=== PATIENT | female | born 1940 | race Caucasian/White ===

== ENCOUNTER 2017-10-24 20:33 | Emergency (ER) | payer OTHER, MEDICARE ==
--- NOTE | 2017-10-24 20:41 | PDOC ---
History of Present Illness - General History Source: Patient, Family Exam Limitations: No Limitations - History of Present Illness Initial Comments: 10/25/17 00:55 The patient is a 76 year old female, accompanied by her and step daughter, with significant past medical history of COPD and appendectomy (unsure ) presents to the hospital complaining of lower abdominal pain for the past 2 week. The patient reports generalized pain with mild relief after taking tylenol and hyoscyamine sulfate. Associated symptoms includes cramps, loss of appetite, rectal urgency after eating back pain when lying flat, lack of movement (lying in bed) secondary to pain. The patient reports chronically feels forceful heart beats upon heavy lifting of objects. The patient states right ear closure upon quick movement of the head. Patient denies fever, chills, diaphoresis, dysphagia, nausea, vomiting, diarrhea , hematochezia, dysuria, hematuria, flank pain. The patient denies, SOB chest pain, dyspnea. Social History: The patient reports she quit smoking and using alcohol several years ago. No use of recreational drugs. Allergies: Penicillin <Rashmi Novoa - Last Filed: 10/25/17 00:55> <Natasha Pabon - Last Filed: 10/25/17 02:10> - General Chief Complaint: Pain, Acute Stated Complaint: ABDOMINAL DISCOMFORT Time Seen by Provider: 10/24/17 20:37 Past History <Rashmi Novoa - Last Filed: 10/25/17 00:55> - Past Medical History COPD: Yes - Surgical History Appendectomy: Yes (unsure) - Suicide/Smoking/Psychosocial Hx Smoking History: Former smoker Have you smoked in the past 12 months: No Number of Cigarettes Smoked Daily: 20 If you are a former smoker, when did you quit?: 2011 'Breaking Loose' booklet given: 07/29/13 Hx Alcohol Use: No Drug/Substance Use Hx: No Substance Use Type: None Hx Substance Use Treatment: No <Natasha Pabon - Last Filed: 10/25/17 02:10> - Past Medical History Allergies/Adverse Reactions: Allergies Allergy/AdvReac Type Severity Reaction Status Date / Time Penicillins Allergy Unknown Verified 10/24/17 20:39 Home Medications: Ambulatory Orders Alprazolam [Xanax] 0.5 mg PO 2 QID #120 tablet 07/29/13 Hyoscyamine Odt [Levsin Odt -] 0.125 mg PO QID PRN #20 tab.rapdis 10/24/17 Hyoscyamine Sulfate [Levsin -] 0.125 mg PO Q4H 10/24/17 Review of Systems - Review of Systems Able to Perform ROS?: Yes Comments:: 10/25/17 00:55 GENERAL/CONSTITUTIONAL: (+) loss of appetite. No fever or chills. No weakness. HEAD, EYES, EARS, NOSE AND THROAT: No change in vision. No ear pain or discharge. No sore throat. CARDIOVASCULAR: No chest pain or shortness of breath. RESPIRATORY: No cough, wheezing, or hemoptysis. GASTROINTESTINAL: (+) constipation. No nausea, vomiting, diarrhea GENITOURINARY: No dysuria, frequency, or change in urination. MUSCULOSKELETAL: (+) back pain when lying flat. No joint or muscle swelling or pain. No neck SKIN: No rash NEUROLOGIC: No headache, vertigo, loss of consciousness, or change in strength/ sensation. ENDOCRINE: No increased thirst. No abnormal weight change. HEMATOLOGIC/LYMPHATIC: No anemia, easy bleeding, or history of blood clots. ALLERGIC/IMMUNOLOGIC: No hives or skin allergy. <Rashmi Novoa - Last Filed: 10/25/17 00:55> *Physical Exam - Vital Signs Last Vital Signs Temp Pulse Resp BP Pulse Ox 97 F L 98 H 18 141/90 95 10/24/17 20:39 10/24/17 20:39 10/24/17 20:39 10/24/17 20:39 10/24/17 20:39 - Physical Exam Comments: 10/25/17 00:56 GENERAL: (+) thin elderly women. Awake, alert, and fully oriented, in no acute distress HEAD: No signs of trauma EYES: PERRLA, EOMI, sclera anicteric, conjunctiva clear ENT: (+) dry mucosa. Auricles normal inspection, hearing grossly normal, nares patent, oropharynx clear without exudates. NECK: Normal ROM, supple, no lymphadenopathy, JVD, or masses LUNGS: Breath sounds equal, clear to auscultation bilaterally. No wheezes, and no crackles HEART: Regular rate and rhythm, normal S1 and S2, no murmurs, rubs or gallops ABDOMEN:(+) hyperactive bowel. Flat, Soft, nontender. No guarding, no rebound. No masses or organomegaly. EXTREMITIES: Normal range of motion, no edema. No clubbing or cyanosis. Normal cap. Refill. No cords, erythema, or tenderness NEUROLOGICAL: Cranial nerves II through XII grossly intact. Normal speech, normal gait SKIN: Warm, Dry, normal turgor, no rashes or lesions noted. <Rashmi Novoa - Last Filed: 10/25/17 00:55> ED Treatment Course - LABORATORY CBC & Chemistry Diagram: 10/24/17 21:21 10/24/17 21:21 <Rashmi Novoa - Last Filed: 10/25/17 00:55> - LABORATORY CBC & Chemistry Diagram: 10/24/17 21:21 10/24/17 21:21 <Natasha Pabon - Last Filed: 10/25/17 02:10> Progress Note - Progress Note Progress Note: Documentation has been prepared under my direction and personally reviewed by me in its entirety. I attest that this documented accurately reflects all work, treatment, procedures and medical decision making performed by me. <Natasha Pabon - Last Filed: 10/25/17 02:10> Medical Decision Making - Medical Decision Making As noted above, this 76-year-old woman with a history of COPD/anxiety presents with a few week history of crampy abdominal pain and rectal urgency. She has no significant other associated symptoms except for voluntary decreased oral intake secondary to the patient not wanting to experience postprandial rectal urgency. No previous history of irritable bowel syndrome or other gastrointestinal issues. Last colonoscopy (Dr. Angela) was 7 years ago. She had some relief after hyoscyamine was empirically prescribed by her PMD one week. When she called PMD for refill of the medication, she was advised to come to ER for further evaluation. Exam as noted; patient had no tenderness or masses on exam. CBC/chemistry profile/urinalysis sent. Results of laboratory evaluation: CBC essentially normal except for mildly elevated H/H (18/48). WBC normal at 4200. Chemistry profile reveals mild hyponatremia and hypokalemia (3.3) but no other significant abnormalities. Urine culture and sensitivity sent because of few RBCs/WBCs/bacteria in UA. Results discussed with patient and her family. Because she has no abdominal tenderness or significant abnormalities in her lab work, further imaging (i.e. abdominal/pelvic CT) will be deferred at this time. She has been followed by Dr. Angela for gastroenterology issues. She is strongly advised to see Dr. Angela within the next 5-7 days. In the meantime, hyoscyamine renewal will be sent. It was emphasized to the patient that her GI workup is not completed and all the possible etiologies of her abdominal pain have not been ruled out. If she experiences worsening pain/vomiting/fever she should return to the emergency room for further evaluation. <Natasha Pabon - Last Filed: 10/25/17 02:10> *DC/Admit/Observation/Transfer - Attestations Scribe Attestion: 10/24/17 22:02 Documentation prepared by Rashmi Novoa, acting as medical liaison for Natasha Pabon MD. <Rashmi Novoa - Last Filed: 10/25/17 00:55> <Natasha Pabon - Last Filed: 10/25/17 02:10> Diagnosis at time of Disposition: Abdominal discomfort, generalized - Discharge Dispostion Disposition: HOME Condition at time of disposition: Stable - Prescriptions Prescriptions: Hyoscyamine Odt [Levsin Odt -] 0.125 mg PO QID PRN #20 tab.rapdis PRN Reason: Pain - Referrals Referrals: Feroz Groves MD [Primary Care Provider] - Mauro Angela MD [Staff Physician] - - Patient Instructions Printed Discharge Instructions: DI for Abdominal Pain-Adult, High-Potassium Diet Additional Instructions: Drink plenty of fluids Consume high potassium fruits and vegetables in your diet Follow-up with Dr. Groves within the next week Call Dr. Angela's office tomorrow to arrange follow-up within the next 5-7 days Return to ER if you have worsening abdominal pain/vomiting/fever - Post Discharge Activity
[2017-10-24 20:44] VITALS: BP 141/90; PULSE 98; TEMP 97; BMI 19.2
[2017-10-24 21:44] LABS: URINE APPEARANCE Clear; URINE BILIRUBIN 1+ (NEGATIVE); URINE GLUCOSE (UA) Negative (NEGATIVE); URINE KETONE 1+ (NEGATIVE); URINE NITRITE Negative (NEGATIVE); URINE PROTEIN Trace (NEGATIVE); URINE UROBILINOGEN 0.2 (0.2-1.0)
[2017-10-24 21:45] LABS: URINE BLOOD 2+ (NEGATIVE); URINE COLOR YELLOW; URINE LEUK ESTERASE TRACE (NEGATIVE)
[2017-10-24 22:04] LABS: BASO % 1.5 % (0-2.0); EOS % 0.4 % (0-4.5); HEMATOCRIT 48.1 % (32.4-45.2); HEMOGLOBIN 15.9 GM/dl (10.7-15.3); LYMPH % 22.1 % (8-40); MCH 31.5 pg (25.7-33.7); MEAN CELL VOLUME 95.5 fl (80-96); MEAN PLT VOLUME 8.7 fl (7.5-11.1); MONO % 7.6 % (3.8-10.2); NEUT % 68.4 % (42.8-82.8); PLATELET COUNT 158 K/MM3 (134-434); RBC 5.04 M/mm3 (3.60-5.2); WHITE BLOOD COUNT 4.8 K/mm3 (4.0-10.8)
[2017-10-24 22:12] LABS: ALBUMIN 4.7 g/dl (3.5-5.0); ALK PHOS 66 U/L (32-92); ANION GAP 7 (8-16); BILIRUBIN,TOTAL 0.7 mg/dl (0.2-1.0); BLOOD UREA NITROGEN 8 mg/dl (7-18); CALCIUM 9.2 mg/dl (8.4-10.2); CHLORIDE 101 mmol/L (98-107); CO2 26 mmol/L (22-28); CREATININE 0.6 mg/dl (0.6-1.3); GLUCOSE,RANDOM 98 mg/dl (74-106); POTASSIUM 3.3 mmol/L (3.5-5.1); SGOT/AST 29 U/L (10-42); SGPT/ALT 15 U/L (10-40); SODIUM 134 mmol/L (136-145); TOT PROT 7.5 g/dl (6.4-8.3)
[2017-10-24 22:13] LABS: EPI CELLS FEW /HPF; URINE BACTERIA FEW /hpf (NEGATIVE); URINE MUCUS FEW; URINE RBC 0-3 /hpf (0-3)
== END 2017-10-24 22:58 | disposition home or self-care (01) ==
LOC: FER 20:33
DX: R10.84 Generalized abdominal pain (principal); F41.9 Anxiety disorder, unspecified
CPT/HCPCS: 36415; 80053; 81003; 81015; 85025; 87086; 87186; 99282-25

== ENCOUNTER 2017-11-01 14:35 | Emergency (ER) | payer OTHER, MEDICARE ==
[2017-11-01 14:43] VITALS: BMI 19.2
[2017-11-01] MEDS ORDERED: SODIUM CHLORIDE 1,000 ML IV SCH (15:15)
--- NOTE | 2017-11-01 15:24 | PDOC ---
History of Present Illness - General History Source: Patient, Family Exam Limitations: No Limitations - History of Present Illness Initial Comments: 11/01/17 16:10 CC: abdominal pain The patient is a 76 year old female, accompanied by her son, with a significant past medical history of anxiety, COPD and appendectomy (unsure) of who presents to the emergency department complaining of lower abdominal pain beginning approximately 1 week ago. The patient describes moderate abdominal pain this morning with mild relief after taking tylenol. The patient reports associated symptoms of diarrhea and constipation, although she reports of chronic constipation. Of note,The patient was discharged from the hospital on 10/24 for similar episodes of abdominal pain and was told to return to emergency department for further evaluation if abdominal pain persists. The patient denies chest pain, shortness of breath, headache, and dizziness. Denies fevers, chills, nausea, and vomiting, Denies dysuria, frequency, urgency, hematuria and abnormal vaginal discharge. Allergies: Penicillin Medications: Alprazolam and Nortriptyline Social History: The patient reports she quit smoking (2011) and using alcohol several years ago. No reported use of recreational drugs. Surgical History: Abdominal surgery for Endometriosis many years ago. PCP: Dr. Groves <Senthil León - Last Filed: 11/01/17 16:15> <Gonzales Miner - Last Filed: 11/01/17 18:35> - General Chief Complaint: Pain Stated Complaint: ABD PAIN Time Seen by Provider: 11/01/17 14:56 Past History <Senthil León - Last Filed: 11/01/17 16:15> - Past Medical History COPD: Yes Psychiatric Problems: Yes (ANXIETY) - Surgical History Appendectomy: Yes (unsure) - Suicide/Smoking/Psychosocial Hx Smoking History: Former smoker Have you smoked in the past 12 months: No Number of Cigarettes Smoked Daily: 20 If you are a former smoker, when did you quit?: 2011 Information on smoking cessation initiated: No 'Breaking Loose' booklet given: 07/29/13 Hx Alcohol Use: No Drug/Substance Use Hx: No Substance Use Type: None Hx Substance Use Treatment: No <Gonzales Miner - Last Filed: 11/01/17 18:35> - Past Medical History Allergies/Adverse Reactions: Allergies Allergy/AdvReac Type Severity Reaction Status Date / Time Penicillins Allergy Unknown Verified 11/01/17 14:36 Home Medications: Ambulatory Orders Alprazolam [Xanax] 0.5 mg PO 2 QID PRN #120 tablet 07/29/13 Phenobarb/Hyoscy/Atropine/Scop [ Elixir -] 5 ml PO BID PRN #120 ml 11/01 Review of Systems - Review of Systems Able to Perform ROS?: Yes Comments:: 11/01/17 16:10 CONSTITUTIONAL: Absent: Fever, Chills, Diaphoresis, Generalized Weakness, Malaise, Loss of Appetite HEENT: Absent: Rhinorrhea, Nasal Congestion, Throat Pain, Throat Swelling, Difficulty Swallowing, Mouth Swelling, Ear Pain, Eye Pain, Visual Changes CARDIOVASCULAR: Absent: Chest Pain, Syncope, Palpitations, Irregular Heart Rate, Lightheadedness , Peripheral Edema RESPIRATORY: Absent: Cough, Shortness of Breath, SOB with Exertion, Orthopnea, Wheezing, Stridor, Hemoptysis GASTROINTESTINAL: (+) Lower abdominal pain. (+)Diarrhea. (+) Constipation. Absent: Abdominal Distension, Nausea, Vomiting, Melena, Hematochezia GENITOURINARY: Absent: Dysuria, Frequency, Urgency, Hesitancy, Flank Pain, Genital Pain MUSCULOSKELETAL: Absent: Myalgia, Arthralgia, Joint Swelling, Back pain, Neck Pain SKIN: Absent: Rash, Itching, Pallor HEMEATOLOGIC/IMMUNOLOGIC: Absent: Easy Bleeding, Easy Bruising, Lymphadenopathy, Frequent infections ENDOCRINE: Absent: Unexplained Weight Gain, Unexplained Weight Loss, Heat Intolerance, Cold Intolerance NEUROLOGIC: Absent: Headache, Focal Weakness, Paresthesias, Vertigo, Lightheadedness, Unsteady Gait, Seizure, Mental Status Changes, Incontinence PSYCHIATRIC: (+)Anxiety Absent: Depression <Senthil León - Last Filed: 11/01/17 16:15> *Physical Exam - Vital Signs Last Vital Signs Temp Pulse Resp BP Pulse Ox 97.6 F 93 H 20 128/76 92 L 11/01/17 14:35 11/01/17 14:35 11/01/17 14:35 11/01/17 14:35 11/01/17 14:35 - Physical Exam Comments: GENERAL: The patient is awake, alert, and fully oriented, in no acute distress. HEAD: Normal with no signs of trauma. EYES: Pupils equal, round and reactive to light, extraocular movements intact, sclera anicteric, conjunctiva clear. ENT: Ears normal, nares patent, oropharynx clear without exudates. Moist mucous membranes. NECK: Normal range of motion, supple without lymphadenopathy, JVD, or masses. LUNGS: Breath sounds equal, clear to auscultation bilaterally. No wheezes, and no crackles. HEART: Regular rate and rhythm, normal S1 and S2 without murmur, rub or gallop. ABDOMEN: (+)Mild epigastric tenderness with deep palpation, otherwise without tenderness. Flat, without distension. Normoactive bowel sounds. No guarding, no rebound. No masses. EXTREMITIES: Normal range of motion, no edema. No clubbing or cyanosis. No cords , erythema, or tenderness. NEUROLOGICAL: Cranial nerves II through XII grossly intact. Normal speech, normal gait. PSYCH: Normal mood, normal affect. SKIN: Warm, Dry, normal turgor, no rashes or lesions noted. <Senthil León - Last Filed: 11/01/17 16:15> - Vital Signs Last Vital Signs Temp Pulse Resp BP Pulse Ox 97.6 F 93 H 20 128/76 92 L 11/01/17 14:35 11/01/17 14:35 11/01/17 14:35 11/01/17 14:35 11/01/17 14:35 <Gonzales Miner - Last Filed: 11/01/17 18:35> ED Treatment Course - LABORATORY CBC & Chemistry Diagram: 11/01/17 15:31 11/01/17 15:31 - RADIOLOGY Radiology Studies Ordered: Category Date Time Status ABDOMEN & PELVIS CT WITH CONTR [CT] Stat CT Scan 11/01/17 15:12 Ordered <Gonzales Miner - Last Filed: 11/01/17 18:35> Medical Decision Making - Medical Decision Making 11/01/17 18:28 Patient is a 76-year-old woman with a history of intermittent, chronic abdominal pain. Over the past week she has had increased abdominal pain somewhat diffusely. She hears lots of bowel sounds and gets crampy pains. There is no vomiting, but positive nausea. She has been passing normal bowel movements, but today at the and she noted a little bit of loose stool consistent with diarrhea. There is no fever. There is no dysuria. There is no vaginal discharge. She has a poor appetite for many years. 30 years ago she weighed 115 pounds and more recently she has been weighing about 105 pounds. Today she got on the scale in the emergency department and she is 90 pounds. She may have lost weight over the past year or so. Her last colonoscopy was [address] Angela. On examination, the patient appears very thin. The head and neck examination is normal. The heart and lungs are normal. There are rare premature beats. The abdomen is soft with mild epigastric tenderness on deep palpation. There is no guarding or rebound. There is no distention. CT scan of the abdomen and pelvis showed no abdominal pathology. There is arthritic change of the spine. Laboratory workup is unremarkable other than mild hypokalemia. Impression: Chronic, intermittent abdominal pain. No specific pathology identified with ED workup. Patient advised to go back to Dr. Angela for repeat colonoscopy within the next 10 days. She and her son both state that she will call him tomorrow and she understands the importance of colonoscopy for follow- up in the setting of weight loss. Laboratory Results - last 24 hr 11/01/17 11/01/17 11/01/17 15:31 15:31 16:05 WBC 5.4 RBC 4.43 Hgb 14.3 D Hct 42.5 MCV 96.0 MCH 32.3 MCHC 33.7 RDW 13.0 Plt Count 164 MPV 8.5 Neutrophils % 74.2 Lymphocytes % 15.5 Monocytes % 8.9 Eosinophils % 0.8 Basophils % 0.6 Sodium 136 Potassium 3.4 L Chloride 102 Carbon Dioxide 27 Anion Gap 7 L BUN 10 D Creatinine < 0.8 D Creat Clearance w eGFR > 60 Random Glucose 105 Calcium 8.4 Total Bilirubin 0.7 AST 25 ALT 14 Alkaline Phosphatase 54 Total Protein 6.4 Albumin 3.9 Lipase 74 Urine Color Yellow Urine Appearance Clear Urine pH 7.0 Ur Specific [place] 1.015 Urine Protein Negative Urine Glucose (UA) Negative Urine Ketones Negative Urine Blood Negative Urine Nitrite Negative Urine Bilirubin Negative Urine Urobilinogen 0.2 Ur Leukocyte Esterase Negative <Gonzales Miner - Last Filed: 11/01/17 18:35> *DC/Admit/Observation/Transfer - Attestations Scribe Attestion: Documentation prepared by Senthil León, acting as curator medical museum for Gonzales Miner MD. <Senthil León - Last Filed: 11/01/17 16:15> - Discharge Dispostion Admit: No <Gonzales Miner - Last Filed: 11/01/17 18:35> Diagnosis at time of Disposition: Abdominal pain Qualifiers: Abdominal location: generalized Qualified Code(s): R10.84 - Generalized abdominal pain - Discharge Dispostion Disposition: HOME Condition at time of disposition: Stable - Prescriptions Prescriptions: Phenobarb/Hyoscy/Atropine/Scop [ Elixir -] 5 ml PO BID PRN #120 ml PRN Reason: abdominal spasms or pain - Referrals Referrals: Feroz Groves MD [Primary Care Provider] - Mauro Angela MD [Staff Physician] - - Patient Instructions Printed Discharge Instructions: DI for Abdominal Pain-Adult Additional Instructions: You were evaluated today for abdominal pain. The tests performed in the emergency department showed no serious cause of pain. The CT scan was normal and the blood work was normal other than low potassium. The sure to eat potassium rich foods. Potassium rich foods include fruit and vegetables such as orange juice and bananas. You are advised to follow-up with Dr. Angela for colonoscopy within the next 10 days. Please call him tomorrow to arrange for follow-up. Your weight today in the emergency department was 90 pounds, and the weight loss should be further evaluated. - Post Discharge Activity
[2017-11-01 16:41] LABS: URINE APPEARANCE Clear; URINE BILIRUBIN Negative (NEGATIVE); URINE BLOOD Negative (NEGATIVE); URINE GLUCOSE (UA) Negative (NEGATIVE); URINE KETONE Negative (NEGATIVE); URINE LEUK ESTERASE Negative (NEGATIVE); URINE NITRITE Negative (NEGATIVE); URINE PROTEIN Negative (NEGATIVE); URINE UROBILINOGEN 0.2 (0.2-1.0)
[2017-11-01 16:43] LABS: URINE COLOR YELLOW
[2017-11-01 16:45] LABS: ALBUMIN 3.9 g/dl (3.5-5.0); ALK PHOS 54 U/L (32-92); ANION GAP 7 (8-16); BILIRUBIN,TOTAL 0.7 mg/dl (0.2-1.0); BLOOD UREA NITROGEN 10 mg/dl (7-18); CALCIUM 8.4 mg/dl (8.4-10.2); CHLORIDE 102 mmol/L (98-107); CO2 27 mmol/L (22-28); GLUCOSE,RANDOM 105 mg/dl (74-106); POTASSIUM 3.4 mmol/L (3.5-5.1); SGOT/AST 25 U/L (10-42); SGPT/ALT 14 U/L (10-40); SODIUM 136 mmol/L (136-145); TOT PROT 6.4 g/dl (6.4-8.3)
[2017-11-01 16:52] LABS: BASO % 0.6 % (0-2.0); EOS % 0.8 % (0-4.5); HEMATOCRIT 42.5 % (32.4-45.2); HEMOGLOBIN 14.3 GM/dl (10.7-15.3); LYMPH % 15.5 % (8-40); MCH 32.3 pg (25.7-33.7); MCHC 33.7 g/dl (32.0-36.0); MEAN PLT VOLUME 8.5 fl (7.5-11.1); MONO % 8.9 % (3.8-10.2); NEUT % 74.2 % (42.8-82.8); PLATELET COUNT 164 K/MM3 (134-434); RBC 4.43 M/mm3 (3.60-5.2); WHITE BLOOD COUNT 5.4 K/mm3 (4.0-10.8)
[2017-11-01 16:57] LABS: CREATININE < 0.8 mg/dl (0.6-1.3)
[2017-11-01] MEDS ORDERED: POTASSIUM CHLORIDE TABS 20 MEQ TABLET.ER (FP) PO ONE ×2 (17:43→17:48)
[2017-11-01 17:58] LABS: LIPASE 74 U/L (73-393)
[2017-11-01] MEDS ORDERED: ACETAMINOPHEN 325 MG TABLET (FP) PO ONE (18:36)
[2017-11-01] MEDS ORDERED: ACETAMINOPHEN 500 MG TABLET (FP) ONE (18:42)
[2017-11-01 18:49] VITALS: BP 129/71; PULSE 86; TEMP 97.8
== END 2017-11-01 18:51 | disposition home or self-care (01) ==
LOC: FER 14:35
PROC: 3E0337Z Introduction of Electrolytic and Water Balance Substance into Peripheral Vein, Percutaneous Approach (ICD-10-PCS; principal; 2017-11-01)
DX: R10.84 Generalized abdominal pain (principal); J44.9 Chronic obstructive pulmonary disease, unspecified; F41.9 Anxiety disorder, unspecified; Z87.891 Personal history of nicotine dependence
CPT/HCPCS: 36415; 74177-TC; 80053; 81003; 83690; 85025; 99285-25; J7030

== ENCOUNTER 2019-05-02 09:20 | Emergency (ER) | payer OTHER, MEDICARE ==
--- NOTE | 2019-05-02 09:28 | PDOC ---
History of Present Illness - General Chief Complaint: Rectal Bleed Stated Complaint: RECTAL BLEEDING Time Seen by Provider: 05/02/19 09:28 - History of Present Illness Initial Comments: 05/02/19 09:29 78 year old woman with a history of anxiety, COPD, appendectomy who presents with rectal bleeding noticed on tissue paper, abdominal cramping after several boughts of diarrhea throughout the night. The patient has had intermittent constipation, abdominal cramping, diarrhea and mild rectal bleeding for 6 month and was seen by Dr. Looney on 04/29 who prescribed fleet enema for her. The patient reports that her last colonoscopy was 8 years ago and her last CT was on 11/13/18 which did not show acute pathology. The patient denies any nausea, vomiting or fevers. No foul smell of stool. Allergies: Penicillin Medications: Alprazolam, Nortriptyline Social History: quit in 2011 Surgical History: appendectomy, endometriosis PCP: Dr. Germain KINSEY GENERAL/CONSTITUTIONAL: No fever or chills. No weakness. CARDIOVASCULAR: No chest pain or shortness of breath RESPIRATORY: No cough, wheezing, or hemoptysis. GASTROINTESTINAL: No nausea, vomiting, + diarrhea or constipation. GENITOURINARY: No dysuria, frequency, or change in urination. MUSCULOSKELETAL: No joint or muscle swelling or pain. No neck or back pain. SKIN: No rash NEUROLOGIC: No headache, vertigo, loss of consciousness, or change in strength/ sensation. PE GENERAL: Awake, alert, and fully oriented, in no acute distress HEAD: No signs of trauma, normocephalic, atraumatic EYES: PERRLA, EOMI, sclera anicteric, conjunctiva clear ENT: oropharynx clear without exudates. Moist mucosa NECK: Normal ROM, supple, LUNGS: No distress, speaks full sentences, clear to auscultation bilaterally HEART: Regular rate and rhythm, normal S1 and S2, no murmurs, rubs or gallops, peripheral pulses normal and equal bilaterally. ABDOMEN: Soft, + RLQ tenderness to palpation No guarding, no rebound. No masses EXTREMITIES : Normal inspection, Normal range of motion, no edema. No clubbing or cyanosis. NEUROLOGICAL: Cranial nerves II through XII grossly intact. Normal speech, no focal sensorimotor deficits SKIN: Warm, Dry, normal turgor, no rashes or lesions noted RECTAL: external hemorrhoids, pink, no active bleeding, good rectal tone, no gross blood MDM DDX including but not limited to: anal fissure vs hemorrhoids vs diverticulosis W/U: - cbc, cmp, CT TX: - tylenol ED Course: Lab wnl heme occult- negative Bel[place]ica Iveth, PGY2 Emergency Medicine 05/02/19 12:54 Past History - Past Medical History Allergies/Adverse Reactions: Allergies Allergy/AdvReac Type Severity Reaction Status Date / Time Penicillins Allergy Unknown Verified 05/02/19 09:26 Home Medications: Ambulatory Orders Acetaminophen [Tylenol -] 500 mg PO Q6H PRN 05/02/19 Albuterol Sulfate [Proair Hfa] 8.5 gm IH ASDIR PRN 05/02/19 Alprazolam 0.5 mg PO QID PRN 05/02/19 Cholecalciferol (Vitamin D3) [Vitamin D3] 1,000 unit PO DAILY 05/02/19 Hyoscyamine Odt [Levsin Odt -] 0.125 mg PO QID PRN 05/02/19 Polyethylene Glycol 3350 [Miralax (For Daily Use) -] 17 gm PO DAILY 05/02/19 Sodium Phosphate,[place]-Dibasic [Fleet Enema] 133 ml RC ASDIR PRN 05/02/19 COPD: Yes Psychiatric Problems: Yes (ANXIETY) - Surgical History Appendectomy: Yes (unsure) - Psycho Social/Smoking Cessation Hx Smoking History: Former smoker Have you smoked in the past 12 months: No Number of Cigarettes Smoked Daily: 20 If you are a former smoker, when did you quit?: 2011 'Breaking Loose' booklet given: 07/29/13 Hx Alcohol Use: No Drug/Substance Use Hx: No Substance Use Type: None Hx Substance Use Treatment: No ED Treatment Course - LABORATORY CBC & Chemistry Diagram: 05/02/19 10:00 05/02/19 10:00 Discharge - Discharge Information Problems reviewed: Yes Clinical Impression/Diagnosis: Abdominal discomfort, generalized, Rectal bleeding Condition: Stable Disposition: HOME - Admission No - Follow up/Referral Referrals: Feorz Groves MD [Primary Care Provider] - Tu Rosenbaum MD [Non Staff, Medical] - - Patient Discharge Instructions Patient Printed Discharge Instructions: DI for Rectal Bleeding Additional Instructions: You were seen in the ED for complaints of rectal bleeding In the ED you were evaluated with labwork Your results were largely unremarkable There does not appear to be an acute need for immediate hospitalization. You are advised to follow up with your Primary Care Physician within 1 week. You were given a referral to Urology due to a small amount of blood in your urine. Return to the ED immediately if you experience worsening abdominal pain, nausea , vomiting, significant rectal bleeding or fevers. - Post Discharge Activity
[2019-05-02 09:34] VITALS: TEMP 97.8
[2019-05-02 09:43] VITALS: BMI 14.4
[2019-05-02 10:20] LABS: BASO % 1.1 % (0-2.0); EOS % 1.9 % (0-4.5); HEMATOCRIT 40.6 % (32.4-45.2); HEMOGLOBIN 13.6 GM/dl (10.7-15.3); MCHC 33.6 g/dl (32.0-36.0); MEAN CELL VOLUME 98.3 fl (80-96); MEAN PLT VOLUME 7.9 fl (7.5-11.1); PLATELET COUNT 195 K/MM3 (134-434); RBC 4.13 M/mm3 (3.60-5.2); RDW 11.8 % (11.6-15.6)
[2019-05-02 10:37] LABS: ALBUMIN 3.7 g/dl (3.4-5.0); BILIRUBIN,TOTAL 0.3 mg/dl (0.2-1); CALCIUM 8.5 mg/dl (8.5-10); CREATININE 0.6 mg/dl (0.55-1.3); POTASSIUM 3.6 mmol/L (3.5-5.1); TOT PROT 6.5 g/dl (6.4-8.2)
[2019-05-02 11:47] LABS: AMORP PHOS 1+ /hpf (NONE SEEN); EPITHELIAL CELLS FEW /hpf
[2019-05-02] MEDS ORDERED: ALPRAZolam 0.25 MG TABLET PO ONE (12:04)
[2019-05-02] MEDS ORDERED: ALPRAZolam 0.25 MG TABLET ONE (12:06)
--- NOTE | 2019-05-02 12:17 | PDOC ---
Attending Attestation - Resident Resident Name: Belgica Lazaro - HPI HPI: 05/02/19 12:09 Pt presents to the ED complaining of a single episode of blood on the toilet paper when she wiped after a bowel movement. Also complaining of mild diffuse abdominal pain. Denies fever, nausea or vomiting or abdominal complaints. History of alternating diarrhea and constipation, seen by Dr. Looney for irritable bowel syndrome. - Physicial Exam PE: 05/02/19 12:18 Agree with resident exam. Patient is alert and oriented and in no acute distress. abdomen is soft, non distended, with mild diffuse tenderness. No guarding or rebound. - Medical Decision Making 05/02/19 12:21 Pt presents to the ED complaining of blood on the toilet paper with wiping and diffuse abdominal pain. No blood on rectal exam, but external hemorroids are present. CBC shows no anemia. Will have patient follow up with Dr. Looney for monitoring for GI bleed and return for worsening symptoms. Also complaining of abodminal pain. Diffential includes diverticulitis, less likely mass or abscess. Will check CT abdomen pelvis to rule out intraabdominal pathology
[2019-05-02 14:02] VITALS: BP 116/75; PULSE 71
== END 2019-05-02 13:30 | disposition home or self-care (01) ==
LOC: FER 09:20
DX: K62.5 Hemorrhage of anus and rectum (principal); R10.84 Generalized abdominal pain; J44.9 Chronic obstructive pulmonary disease, unspecified; F41.9 Anxiety disorder, unspecified; Z88.0 Allergy status to penicillin; Z87.891 Personal history of nicotine dependence
CPT/HCPCS: 36415; 74177-TC; 80053; 81003; 81015; 82272; 85025; 99284-25

== ENCOUNTER 2020-04-14 08:58 | Inpatient (IN) | payer OTHER, MEDICARE ==
--- NOTE | 2020-04-14 09:06 | PDOC ---
History of Present Illness - General Chief Complaint: Rectal Bleed Stated Complaint: RECTAL BLEED Time Seen by Provider: 04/14/20 09:05 - History of Present Illness Initial Comments: 04/14/20 09:23 Chief complaint: Rectal bleeding HPI: Patient brought in by her daughter. Lives alone, but with home health aide in the days. Several episodes of diarrhea over the weekend, but seemed to resolve. Today she called her daughter at 6:30 AM, before her aide arrived, saying that she had bloody stool this morning. Both the patient and the aides state that there was no blood during her prior episodes of diarrhea. She has moderate dementia and is confused, but seems to be able to converse and describe her symptoms. Review of systems: Denies fever/chills, URI symptoms, sore throat, cough, chest pain, shortness of breath, abdominal pain, nausea, vomiting, urinary tract symptoms, vaginal bleeding or discharge. Denies visual or focal neurologic symptoms, unsteadiness of gait. Appetite is adequate and she has been eating and drinking as usual. Past medical history: No history of GI disease including gastrointestinal bleed ing. However, has not had colonoscopy. Severe dementia. No known cardiovascular or pulmonary disease. No known metabolic disease or diabetes. Social history: As noted above. Lives alone with home health assistance. Daughter lives nearby and visits frequently. Dementia is becoming worse and t here is concern about the patient's ability to adequately care for herself in the near future Family history: Reviewed and noncontributory including early coronary artery disease, metabolic disease including diabetes, cancer Physical exam: Patient is confused but completely awake and responds appr opriately to questions with comprehensible verbal answers. She appears in no acute physical distress Afebrile, vital signs normal PERRLA, ENT clear Neck supple without bruit mass or nodes Chest clear, full breath sounds bilaterally, no wheezes rales or rhonchi CV S1-S2 normal without murmur rub or gallop pulses full and symmetric no JVD or edema no bruits 62 and regular Abdomen nondistended. Bowel sounds normal. Soft without mass tenderness organomegaly Rectal exam: No masses or tenderness. Minimal stool is present at the fingertip, but it is visually bloody Extremities no CCE Skin clear, no rash, adequate turgor and wet mucous membranes Neurological: Cooperation is limited but cranial nerves appear intact. No definite focal sensory or motor deficits. Moving all extremities with no a pparent loss of strength. Impression: Bloody stool, no evidence of hemorrhoids, probable lower GI bleed, rule out diverticular bleed, colon cancer, AVM. Does not appear hypovolemic, blood pressure is low normal but orthostatics not obtained. Plan: CBC, chemistries, IV access, consider admission for investigation of acute GI bleed. 04/14/20 09:50 Past History - Medical History Allergies/Adverse Reactions: Allergies Allergy/AdvReac Type Severity Reaction Status Date / Time Penicillins Allergy Unknown Verified 05/02/19 09:26 Home Medications: Ambulatory Orders Alprazolam 0.5 mg PO QID PRN 05/02/19 Mirtazapine 15 mg PO HS 04/14/20 Tiotropium [place] [Spiriva] 1 inh PO DAILY 04/14/20 COPD: Yes GI Disorders: Yes (IBS W/ CONSTIPATION, HEMMORHOIDS) Psychiatric Problems: Yes (ANXIETY) - Surgical History Appendectomy: Yes (unsure) - Psycho-Social/Smoking History Smoking History: Former smoker Have you smoked in the past 12 months: No Number of Cigarettes Smoked Daily: 20 If you are a former smoker, when did you quit?: 2011 'Breaking Loose' booklet given: 07/29/13 ED Treatment Course - LABORATORY CBC & Chemistry Diagram: 04/14/20 09:17 04/14/20 09:17 Medical Decision Making - Medical Decision Making 04/14/20 12:28 H&H are stable, but with silvia blood on rectal exam and history of large amount of bleeding, admit for work-up. No abdominal pain. Patient appears stable now. Admitted to hospitalistJennifer informed, Dr. Angela contacted for consult and he will see patient. Discharge - Discharge Information Problems reviewed: Yes Clinical Impression/Diagnosis: Lower GI bleed - Admission Yes - Follow up/Referral - Patient Discharge Instructions - Post Discharge Activity
[2020-04-14 09:40] LABS: EOS % 1.1 % (0-4.5); HEMATOCRIT 43.3 % (32.4-45.2); HEMOGLOBIN 13.9 GM/dl (10.7-15.3); LYMPH % 17.3 % (8-40); MCH 32.5 pg (25.7-33.7); MCHC 32.2 g/dl (32.0-36.0); MEAN PLT VOLUME 8.9 fl (7.5-11.1); MONO % 8.8 % (3.8-10.2); NEUT % 71.8 % (42.8-82.8); PLATELET COUNT 144 K/MM3 (134-434); RBC 4.29 M/mm3 (3.60-5.2); RDW 12.5 % (11.6-15.6); WHITE BLOOD COUNT 4.1 K/mm3 (4.0-10.8)
[2020-04-14 09:49] LABS: ALBUMIN 3.9 g/dl (3.4-5.0); BILIRUBIN,TOTAL 0.7 mg/dl (0.2-1); CALCIUM 8.9 mg/dl (8.5-10); CREATININE 0.6 mg/dl (0.55-1.3); TOT PROT 6.4 g/dl (6.4-8.2)
[2020-04-14] MEDS ORDERED: ALPRAZolam 0.25 MG TABLET PO PRN (12:03)
--- NOTE | 2020-04-14 12:03 | HP ---
CHIEF COMPLAINT: Blood per rectum PCP: Dr. Groves HISTORY OF PRESENT ILLNESS: 79 year-old female with a PMH significant for COPD, anxiety, dementia, chronic abdominal pain, and hemorrhoids. Patient is a poor historian and this history is obtained from her adult daughter. Patient had several witnessed episodes of diarrhea over the weekend, no blood seen. Today she called her daughter at 6:30 AM, while she was alone (before her aide arrived), saying she had just passed a large amount of blood in the toilet. The daughter arrived and saw no sign of blood or stool in the bathroom or on the patient, no sign of the patient having cleaned up stool or blood. ER course was notable for: (1) Hgb 13.9 (2) occult stool positive Recent Travel: No PAST MEDICAL HISTORY: COPD Anxiety Dementia Chronic abdominal pain Hemorrhoids PAST SURGICAL HISTORY: Surgery for endometriosis Appendectomy Social History: , lives alone with home health aides Smoking: quit 2011, 100 pack-year history Alcohol: quit years ago Drugs: no Allergies Penicillins Allergy (Unknown, Verified 05/02/19 09:26) HOME MEDICATIONS: Home Medications Medication Instructions Recorded Alprazolam 0.5 mg PO QID PRN 05/02/19 Mirtazapine 15 mg PO HS 04/14/20 Tiotropium [place] [Spiriva] 1 inh PO DAILY 04/14/20 REVIEW OF SYSTEMS CONSTITUTIONAL: Absent: fever, chills, diaphoresis, generalized weakness, malaise, loss of appetite, weight change HEENT: Absent: rhinorrhea, nasal congestion, throat pain, throat swelling, difficulty swallowing, mouth swelling, ear pain, eye pain, visual changes CARDIOVASCULAR: Absent: chest pain, syncope, palpitations, irregular heart rate, lightheadedness, peripheral edema RESPIRATORY: Absent: cough, shortness of breath, dyspnea with exertion, orthopnea, wheezing, stridor, hemoptysis GASTROINTESTINAL: "large amount" blood passed in toilet reported to daughter Absent: abdominal pain, abdominal distension, nausea, vomiting, diarrhea, constipation, melena, hematochezia GENITOURINARY: Absent: dysuria, frequency, urgency, hesitancy, hematuria, flank pain, genital pain MUSCULOSKELETAL: Absent: myalgia, arthralgia, joint swelling, back pain, neck pain SKIN: Absent: rash, itching, pallor HEMATOLOGIC/IMMUNOLOGIC: Absent: easy bleeding, easy bruising, lymphadenopathy, frequent infections ENDOCRINE: Absent: unexplained weight gain, unexplained weight loss, heat intolerance, cold intolerance NEUROLOGIC: Absent: headache, focal weakness or paresthesias, dizziness, unsteady gait, seizure, mental status changes, bladder or bowel incontinence PSYCHIATRIC: Absent: anxiety, depression, suicidal or homicidal ideation, hallucinations. PHYSICAL EXAMINATION Vital Signs - 24 hr 04/14/20 04/14/20 04/14/20 08:59 10:12 10:36 Temperature 97.8 F Pulse Rate 66 Pulse Rate [ Apical] Pulse Rate [ 56 L 61 Left] Respiratory 20 20 21 H Rate Blood Pressure 102/56 L Blood Pressure 85/67 L 100/49 L [Right Arm] O2 Sat by Pulse 97 100 96 Oximetry (%) 04/14/20 04/14/20 10:55 11:11 Temperature 97.9 F Pulse Rate Pulse Rate [ 65 66 Apical] Pulse Rate [ 65 Left] Respiratory 20 19 Rate Blood Pressure Blood Pressure 103/52 L 100/53 L [Right Arm] O2 Sat by Pulse 97 96 Oximetry (%) GENERAL/NEURO: Awake, alert, and fully oriented. Speech is clearly articulated, some of it comprehensible, some not responsive, vague; thin, frail, cachectic, temporal wasting, protruding clavicles; CN II to XII grossly intact HEAD: Normal with no signs of trauma. LUNGS: Breath sounds equal, clear to auscultation bilaterally. No wheezes, and no crackles. No accessory muscle use. HEART: Regular rate and rhythm, normal S1 and S2 ABDOMEN: Soft, nontender, not distended, normoactive bowel sounds UPPER EXTREMITIES: 2+ pulses, warm, well-perfused. No cyanosis. No clubbing. No peripheral edema. LOWER EXTREMITIES: 2+ pulses, warm, well-perfused. No calf tenderness. No peripheral edema. Laboratory Results - last 24 hr 04/14/20 04/14/20 04/14/20 09:10 09:17 09:17 WBC 4.1 RBC 4.29 Hgb 13.9 Hct 43.3 MCV 101.0 H MCH 32.5 MCHC 32.2 RDW 12.5 Plt Count 144 MPV 8.9 Absolute Neuts (auto) 3.0 Neutrophils % 71.8 Lymphocytes % 17.3 Monocytes % 8.8 Eosinophils % 1.1 Basophils % 1.0 Sodium 141 Potassium 4.0 Chloride 103 Carbon Dioxide 29 Anion Gap 9 BUN 19.0 H Creatinine 0.6 Est GFR (CKD-EPI)AfAm 101.90 Est GFR (CKD-EPI)NonAf 87.92 Random Glucose 103 Calcium 8.9 Total Bilirubin 0.7 AST 22 ALT 12 L Alkaline Phosphatase 44 L Total Protein 6.4 Albumin 3.9 Stool Occult Blood Trace ASSESSMENT/PLAN: 79 year-old female with a PMH significant for COPD, anxiety, dementia, chronic abdominal pain, and hemorrhoids. Placed on observation on patient's report of bleeding per rectum. r/o lower GI bleed --difficult to determine if patient had GI bleed as the event was not witnessed by aides or family; ED doctor's exam revealed minimal stool at the fingertip but visually bloody --Hgb 13.9, repeat q6h --seen and evaluated by GI, continue to monitor, if stable, may discharge with outpatient followup COPD --continue inhalers Anxiety/dementia --continue lorazepam and mirtazipine Severe protein calorie malnutrition --thin, frail, cachectic; BMI 14.3 FEN Fluids: D5NS@42mL/hr Electrolytes: replete as indicated Nutrition: clears DVT prophylaxis: SCDs Dispo: continues to require observation. Full code. Family Medical History Family History: As Documented Visit type - Medication Review Med list reviewed for High Risk Meds patients 65 and older: Yes (And discussed with pharmacy) - Emergency Visit Emergency Visit: Yes ED Registration Date: 04/14/20 Care time: The patient presented to the Emergency Department on the above date and was hospitalized for further evaluation of their emergent condition. - New Patient This patient is new to me today: Yes Date on this admission: 04/15/20 - Critical Care Critical Care patient: No
--- NOTE | 2020-04-14 14:50 | PN ---
Progress Note (short form) - Note Progress Note: Patient seen and consult dictated. Patient with recent rectal bleeding (??amount),painless. Has hx of hemorrhoids - seen on flex sig 15 yrs ago and colonoscopy 10 yrs ago. Had recent diarrhea x several days - now resolved. Patient with dementia/confusion and is not reliable with regards to the amount of rectal bleeding ; she states it was a large amount but there was no evidence of this as per daughter (and previously by aides). Hct normal and no bleeding since admission. In view of severe COPD/O2 dependence, patient at high risk for sedation for LGI endoscopy. If no further bleeding seen and Hct stable, can consider conservative approach with expectant monitoring (and discharge home) If further bleeding, would request Anesthesia evaluation prior to decision re: colonoscopy Discussed with family.
[2020-04-14] MEDS ORDERED: TUBERCULIN PPD 5 TU/0.1ML SYRINGE (IN PATIENT USE ONLY) ID ONE (15:27)
[2020-04-14] MEDS ORDERED: DEXTROSE 5%-NORMAL SALINE 1,000 ML IV SCH (15:30)
[2020-04-14 15:44] LABS: HEMOGLOBIN 12.8 GM/dl (10.7-15.3); MCH 32.9 pg (25.7-33.7); MCHC 32.8 g/dl (32.0-36.0); MEAN CELL VOLUME 100.2 fl (80-96); MEAN PLT VOLUME 8.9 fl (7.5-11.1); PLATELET COUNT 122 K/MM3 (134-434); RBC 3.89 M/mm3 (3.60-5.2); RDW 12.2 % (11.6-15.6); WHITE BLOOD COUNT 4.3 K/mm3 (4.0-10.8)
[2020-04-14] MEDS: ALPRAZolam 0.25 MG TABLET PO SCH (16:35)
[2020-04-14] MEDS ORDERED: SODIUM CHLORIDE 500 ML IV STA (17:04)
[2020-04-14] MEDS: MIRTAZAPINE 15 MG TABLET (FP) PO SCH (21:18)
[2020-04-14 21:31] LABS: HEMOGLOBIN 12.7 GM/dl (10.7-15.3); MCH 33.2 pg (25.7-33.7); MCHC 33.3 g/dl (32.0-36.0); MEAN CELL VOLUME 99.7 fl (80-96); MEAN PLT VOLUME 8.7 fl (7.5-11.1); PLATELET COUNT 132 K/MM3 (134-434); RBC 3.82 M/mm3 (3.60-5.2); RDW 12.1 % (11.6-15.6); WHITE BLOOD COUNT 3.9 K/mm3 (4.0-10.8)
[2020-04-15 03:44] LABS: HEMATOCRIT 37.6 % (32.4-45.2); HEMOGLOBIN 12.6 GM/dL (10.7-15.3); MCH 33.6 pg (25.7-33.7); MCHC 33.4 g/dl (32.0-36.0); MEAN CELL VOLUME 100.4 fl (80-96); MEAN PLT VOLUME 8.8 fl (7.5-11.1); PLATELET COUNT 109 K/MM3 (134-434); RBC 3.75 M/mm3 (3.60-5.2); RDW 12.8 % (11.6-15.6); WHITE BLOOD COUNT 3.7 K/mm3 (4.0-10.0)
[2020-04-15] MEDS ORDERED: LOCK ITEM NR ONE (06:27)
[2020-04-15 08:34] LABS: BASO % 1.4 % (0-2.0); EOS % 4.1 % (0-4.5); HEMATOCRIT 40.2 % (32.4-45.2); HEMOGLOBIN 12.9 GM/dl (10.7-15.3); MCH 32.9 pg (25.7-33.7); MEAN CELL VOLUME 102.6 fl (80-96); MEAN PLT VOLUME 9.2 fl (7.5-11.1); MONO % 9.7 % (3.8-10.2); NEUT % 60.8 % (42.8-82.8); PLATELET COUNT 132 K/MM3 (134-434); RBC 3.92 M/mm3 (3.60-5.2); RDW 12.5 % (11.6-15.6); WHITE BLOOD COUNT 4.4 K/mm3 (4.0-10.8)
[2020-04-15 08:35] LABS: ALBUMIN 3.4 g/dl (3.4-5.0); BILIRUBIN,TOTAL 0.8 mg/dl (0.2-1); CALCIUM 8.2 mg/dl (8.5-10); CREATININE 0.4 mg/dl (0.55-1.3); POTASSIUM 3.9 mmol/L (3.5-5.1); TOT PROT 5.7 g/dl (6.4-8.2)
[2020-04-15] MEDS ORDERED: PT OWN MED DRAWER 7, Y5N ONE (08:59)
--- NOTE | 2020-04-15 09:20 | DS ---
Physical Exam: SUBJECTIVE: Patient seen and examined. Anxious. Confused. OBJECTIVE: Vital Signs Period Temp Pulse Resp BP Sys/Garcia Pulse Ox Last 24 Hr 97.6 F-98.7 F 52-75 16-21 85-129/41-67 91-100 PHYSICAL EXAM GENERAL: The patient is awake, oriented x 2; anxious; thin, frail, emaciated appearance, protruding clavicle and ribs, temoral wasting LUNGS: Breath sounds equal, clear to auscultation bilaterally. No wheezes, and no crackles. No accessory muscle use. HEART: Regular rate and rhythm, normal S1 and S2 ABDOMEN: Soft, nontender, not distended, normoactive bowel sounds UPPER EXTREMITIES: 2+ pulses, warm, well-perfused. No cyanosis. No clubbing. No peripheral edema. LOWER EXTREMITIES: 2+ pulses, warm, well-perfused. No calf tenderness. No peripheral edema. LABS Laboratory Results - last 24 hr 04/14/20 04/14/20 04/14/20 09:10 09:17 09:17 WBC 4.1 RBC 4.29 Hgb 13.9 Hct 43.3 MCV 101.0 H MCH 32.5 MCHC 32.2 RDW 12.5 Plt Count 144 MPV 8.9 Absolute Neuts (auto) 3.0 Neutrophils % 71.8 Lymphocytes % 17.3 Monocytes % 8.8 Eosinophils % 1.1 Basophils % 1.0 Sodium 141 Potassium 4.0 Chloride 103 Carbon Dioxide 29 Anion Gap 9 BUN 19.0 H Creatinine 0.6 Est GFR (CKD-EPI)AfAm 101.90 Est GFR (CKD-EPI)NonAf 87.92 Random Glucose 103 Calcium 8.9 Total Bilirubin 0.7 AST 22 ALT 12 L Alkaline Phosphatase 44 L Total Protein 6.4 Albumin 3.9 Stool Occult Blood Trace Blood Type Antibody Screen 04/14/20 04/14/20 04/14/20 09:20 09:25 15:22 WBC 4.3 RBC 3.89 Hgb 12.8 Hct 39.0 MCV 100.2 H MCH 32.9 MCHC 32.8 RDW 12.2 Plt Count 122 L MPV 8.9 Absolute Neuts (auto) Neutrophils % Lymphocytes % Monocytes % Eosinophils % Basophils % Sodium Potassium Chloride Carbon Dioxide Anion Gap BUN Creatinine Est GFR (CKD-EPI)AfAm Est GFR (CKD-EPI)NonAf Random Glucose Calcium Total Bilirubin AST ALT Alkaline Phosphatase Total Protein Albumin Stool Occult Blood Blood Type O NEGATIVE O NEGATIVE Antibody Screen Negative 04/14/20 04/15/20 04/15/20 21:00 02:01 07:02 WBC 3.9 L 3.7 L 4.4 RBC 3.82 3.75 3.92 Hgb 12.7 12.6 12.9 Hct 38.0 37.6 40.2 MCV 99.7 H 100.4 H 102.6 H MCH 33.2 33.6 32.9 MCHC 33.3 33.4 32.0 RDW 12.1 12.8 12.5 Plt Count 132 L 109 L 132 L MPV 8.7 8.8 9.2 Absolute Neuts (auto) 2.6 Neutrophils % 60.8 Lymphocytes % 24.0 Monocytes % 9.7 Eosinophils % 4.1 Basophils % 1.4 Sodium Potassium Chloride Carbon Dioxide Anion Gap BUN Creatinine Est GFR (CKD-EPI)AfAm Est GFR (CKD-EPI)NonAf Random Glucose Calcium Total Bilirubin AST ALT Alkaline Phosphatase Total Protein Albumin Stool Occult Blood Blood Type Antibody Screen 04/15/20 07:02 WBC RBC Hgb Hct MCV MCH MCHC RDW Plt Count MPV Absolute Neuts (auto) Neutrophils % Lymphocytes % Monocytes % Eosinophils % Basophils % Sodium 139 Potassium 3.9 Chloride 107 Carbon Dioxide 27 Anion Gap 5 L BUN 10.0 Creatinine 0.4 L Est GFR (CKD-EPI)AfAm 116.44 Est GFR (CKD-EPI)NonAf 100.47 Random Glucose 99 Calcium 8.2 L Total Bilirubin 0.8 AST 15 ALT 11 L Alkaline Phosphatase 37 L Total Protein 5.7 L Albumin 3.4 Stool Occult Blood Blood Type Antibody Screen HOSPITAL COURSE: Date of Admission:04/14/20 Date of Discharge: 04/15/20 Pre hospital course 79 year-old female with a PMH significant for COPD, anxiety, dementia, chronic abdominal pain, and hemorrhoids. Patient is a poor historian and this history is obtained from her adult daughter. Patient had several witnessed episodes of diar ced over the weekend, no blood seen. Today she called her daughter at 6:30 AM, while she was alone (before her aide arrived), saying she had just passed a large amount of blood in the toilet. The daughter arrived and saw no sign of blood or stool in the bathroom or on the patient, no sign of the patient having cleaned up stool or blood. ER course was notable for: (1) Hgb 13.9 (2) occult stool positive Subsequent hospital course 79 year-old female with a PMH significant for COPD, anxiety, dementia, chronic abdominal pain, and hemorrhoids. Placed on observation on patient's report of bleeding per rectum. r/o lower GI bleed --difficult to determine if patient had GI bleed as the event was not witnessed by aides or family; ED doctor's exam revealed minimal stool at the fingertip but visually bloody --Hgb 13.9 and remained stable --seen and evaluated by GI, needs outpatient followup COPD --continued inhalers Anxiety/dementia --continued lorazepam and mirtazipine Severe protein calorie malnutrition --thin, frail, cachectic; BMI 14.3 Minutes to complete discharge: 35 Discharge Summary Problems reviewed: Yes Reason For Visit: LOWER GASTROINTESTINAL HEMORRHAGE Current Active Problems Lower GI bleed (Acute) Condition: Improved - Instructions Referrals: Feroz Groves MD [Primary Care Provider] - Disposition: HOME - Home Medications Comprehensive Discharge Medication List: Ambulatory Orders Alprazolam 0.5 mg PO QID PRN 05/02/19 Mirtazapine 15 mg PO HS 04/14/20 Tiotropium [place] [Spiriva] 1 inh PO DAILY 04/14/20 This patient is new to me today: No Emergency Visit: Yes ED Registration Date: 04/14/20 Care time: The patient presented to the Emergency Department on the above date and was hospitalized for further evaluation of their emergent condition. Critical Care patient: No - Discharge Referral Referred to [facility] No
[2020-04-15] MEDS: ALPRAZolam 1 MG TABLET PO SCH (09:28)
[2020-04-15] MEDS: TIOTROPIUM BROMIDE 2.5 MCG (SPIRIVA) RESPIMAT INHALER IH SCH (09:28)
--- NOTE | 2020-04-15 14:06 | EKG ---
Test Reason : Blood Pressure : / mmHG Vent. Rate : 058 BPM Atrial Rate : 058 BPM P-R Int : 146 ms QRS Dur : 070 ms QT Int : 412 ms P-R-T Axes : 077 030 044 degrees QTc Int : 404 ms SINUS BRADYCARDIA SEPTAL INFARCT , AGE UNDETERMINED ABNORMAL ECG NO PREVIOUS ECGS AVAILABLE Confirmed by MADDISON STRONG MD ([id number]) on 04/15/2020 2:05:31 PM Referred By: LAURITA GILL Confirmed By:MADDISON STRONG MD
--- NOTE | 2020-04-15 14:45 | CONS ---
DATE OF CONSULTATION: 04/14/2020 Asked to evaluate this 79-year-old female admitted via the emergency room with rectal bleeding. The patient has a past history of dementia and confusion. She also has a history of hemorrhoids with occasional bleeding in the past. She is known to me with a colonoscopy 10 years ago showing hemorrhoids and a sigmoidoscopy years prior to that also showing hemorrhoids at the initial time she did have some rectal bleeding. The patient is oxygen-dependent with COPD and lives alone with home health aides. She apparently had some diarrhea over the weekend which resolved. The patient believes she had a large amount of blood with moving her bowels this morning with the blood in the toilet bowl. However, there was no visualized bleeding by the daughter when she went to see the patient and none in the emergency room. The patient is Hemoccult-positive and does have some blood on digital exam. She denies any nausea, vomiting, abdominal pain, fever or chills. She has blood tests including a hemoglobin of 13.9, hematocrit of 43.3 and a platelet count of 144,000 with a white count of 4.1. Her chemistries include a BUN of 19 and a creatinine of 0.6. The patient is not on blood thinners at the present time. PHYSICAL EXAMINATION: General: She is a well-developed, thin female, alert with slight confusion. She denies any abdominal pain, cramps or rectal pain at the present time. She is dependent on nasal oxygen at rest. Lungs: Grossly clear. Cardiac: Regular rate and rhythm. Abdomen: Soft, flat and nontender. Rectal: In the emergency room she was noted to have heme-positive stool on digital exam. She was noted to have no large hemorrhoids. A 79-year-old female with dementia and COPD oxygen dependent admitted with an episode of some rectal bleeding. Her hematocrit and vital signs are stable. The patient currently without bleeding and denies any abdominal or rectal pain. No recent colonoscopy with prior colonoscopy and sigmoidoscopy showing only hemorrhoids. Suspect hemorrhoids are the cause of her recent bleeding and suspect her bleeding may have been less than what she has described. In view of the patient's clinical history, a sigmoidoscopy or colonoscopy has been offered to evaluate further pending the results of a COVID test. Alternatively, the patient is hemodynamically stable and could be monitored as an outpatient. At the present time after discussion with the patient who is confused and the daughter who is at bedside, a tentative decision to monitor her overnight has been made. If there is no further bleeding and she remains stable, she will likely be discharged in the morning. If there is further bleeding and the COVID test is negative, a lower GI endoscopy will be arranged thereafter. KAYLIE ROBLEDO M.D. [id number]
[2020-04-15] MEDS: ALPRAZolam 0.25 MG TABLET PO SCH (16:28)
[2020-04-15] MEDS ORDERED: SODIUM CHLORIDE 1,000 ML IV SCH (16:30)
[2020-04-15] MEDS: MIRTAZAPINE 15 MG TABLET (FP) PO SCH (21:23)
[2020-04-16] MEDS ORDERED: MAG HYDROX/AL HYDROX/SIMETH 30 ML UNIT-DOSE CUP PO PRN (08:42)
[2020-04-16] MEDS: ALPRAZolam 1 MG TABLET PO SCH (09:02)
[2020-04-16] MEDS: TIOTROPIUM BROMIDE 2.5 MCG (SPIRIVA) RESPIMAT INHALER IH SCH (09:03)
--- NOTE | 2020-04-16 09:44 | PN ---
Progress Note, Physician Chief Complaint: Pt awaiting PPD read in order to be d/main. This morning pt reports epigastric- mid-sternal chest discomfort, denies any other associated symptoms- EKG SB without acute pathology History of Present Illness: 79 year-old female with a PMH significant for COPD, anxiety, dementia, chronic abdominal pain, and hemorrhoids. Patient is a poor historian and this history is obtained from her adult daughter. Patient had several witnessed episodes of diarrhea over the weekend, no blood seen. Today she called her daughter at 6:30 AM, while she was alone (before her aide arrived), saying she had just passed a large amount of blood in the toilet. The daughter arrived and saw no sign of blood or stool in the bathroom or on the patient, no sign of the patient having cleaned up stool or blood. ER course was notable for: (1) Hgb 13.9 (2) occult stool positive - Current Medication List Current Medications: Active Medications Al Hydroxide/Mg Hydroxide (Mylanta Oral Suspension -) 30 ml PO Q6H PRN PRN Reason: DYSPEPSIA Last Admin: 04/16/20 08:57 Dose: 30 ml Documented by: Alprazolam (Xanax) 1 mg PO DAILY [facility] Last Admin: 04/16/20 09:02 Dose: 1 mg Documented by: Alprazolam (Xanax -) 0.5 mg PO 1600 [facility] Last Admin: 04/15/20 16:28 Dose: 0.5 mg Documented by: Sodium Chloride (Normal Saline -) 1,000 mls @ 50 mls/hr IV ASDIR [facility] Stop: 04/16/20 16:21 Last Admin: 04/15/20 16:36 Dose: 50 mls/hr Documented by: Mirtazapine (Remeron -) 15 mg PO HS [facility] Last Admin: 04/15/20 21:23 Dose: 15 mg Documented by: Tiotropium [place] (Spiriva Respimat) 2 puff IH DAILY [facility] Last Admin: 04/16/20 09:03 Dose: 2 puff Documented by: - Objective Vital Signs: Vital Signs Temperature 97.8 F 04/16/20 06:00 Pulse Rate 54 L 04/16/20 06:00 Respiratory Rate 18 04/16/20 06:00 Blood Pressure 98/53 L 04/16/20 06:00 O2 Sat by Pulse Oximetry (%) 95 04/16/20 07:00 Constitutional: Yes: Cachectic, Thin Eyes: Yes: Conjunctiva Clear, Sclera Icterus HENT: Yes: Atraumatic Neck: Yes: Supple Cardiovascular: Yes: Bradycardia Respiratory: Yes: Regular, CTA Bilaterally Gastrointestinal: Yes: Soft, Hypoactive Bowel Sounds, Tenderness, Tenderness, Epigastrium ...Rectal Exam: Yes: Deferred Musculoskeletal: Yes: Muscle Weakness Extremities: Yes: WNL Edema: No Peripheral Pulses: Left Radial: 2+, Right Radial: 2+, Left Doralis Pedis: 2+, Right Dorsalis Pedis: 2+ Neurological: Yes: Alert, Confusion Psychiatric: Yes: Alert Labs: CBC, BMP 04/15/20 07:02 04/15/20 07:02 - ....Imaging Chest X-ray: Report Reviewed (CXR 04/15/2020 EXAM#: TYPE/EXAM: RESULT: [id number] RAD/CHEST X-RAY PORTABLE* Chest: Preop. A single view of the chest has been submitted. Since the prior study of 04/14/2020 at 0938 hours again noted is mild hyperaeration with some coarse upper lobe changes, sclerotic knob, slightly prominent candelaria and normal heart. An acute chest process is not seen. Correlation recommended Reported By: Joseph Gaspar MD 04/15/20 0754) Problem List - Problems (1) Dementia Assessment/Plan: -continued lorazepam and mirtazipine - frequent reorientation Code(s): F03.90 - UNSPECIFIED DEMENTIA WITHOUT BEHAVIORAL DISTURBANCE (2) Protein calorie malnutrition Assessment/Plan: start Ensure BID to supplement dietary intake Code(s): E46 - UNSPECIFIED PROTEIN-CALORIE MALNUTRITION (3) COPD (chronic obstructive pulmonary disease) Assessment/Plan: spiriva daily Code(s): J44.9 - CHRONIC OBSTRUCTIVE PULMONARY DISEASE, UNSPECIFIED (4) Prophylactic measure Assessment/Plan: fall precautions Stockings -CODIE aspiration precautions OOB to chair with assistance Code(s): Z29.9 - ENCOUNTER FOR PROPHYLACTIC MEASURES, UNSPECIFIED (5) Hemorrhoids Assessment/Plan: GI consult appreciated - recomends: " In view of severe COPD/O2 dependence, patient at high risk for sedation for LGI endoscopy. If no further bleeding seen and Hct stable, can consider conservative approach with expectant monitoring...If further bleeding, would request Anesthesia evaluation prior to decision re: colonoscopy" H/H stable and no episodes of bleeding while inpatient Code(s): K64.9 - UNSPECIFIED HEMORRHOIDS Impression/Plan Impression/Plan: Dispo: d/c to rehab after 5pm PPD read Code status: Full code Visit type - Emergency Visit Emergency Visit: Yes ED Registration Date: 04/15/20 Care time: The patient presented to the Emergency Department on the above date and was hospitalized for further evaluation of their emergent condition. - New Patient This patient is new to me today: Yes Date on this admission: 04/16/20 - Critical Care Critical Care patient: No - Discharge Referral Referred to [facility] Med [facility] No - Medication Review Med list reviewed for High Risk Meds patients 65 and older: Yes
[2020-04-16 14:03] VITALS: BP 97/51; PULSE 57; TEMP 98.7
[2020-04-16 15:57] VITALS: BMI 14.2
[2020-04-16] MEDS: ALPRAZolam 0.25 MG TABLET PO SCH (16:28)
--- NOTE | 2020-04-17 16:14 | EKG ---
Test Reason : Blood Pressure : / mmHG Vent. Rate : 059 BPM Atrial Rate : 059 BPM P-R Int : 142 ms QRS Dur : 076 ms QT Int : 394 ms P-R-T Axes : 060 017 036 degrees QTc Int : 390 ms SINUS BRADYCARDIA WITH OCCASIONAL PREMATURE VENTRICULAR COMPLEXES SEPTAL INFARCT (CITED ON OR BEFORE 14-APR-2020) ABNORMAL ECG WHEN COMPARED WITH ECG OF 14-APR-2020 09:48, PREMATURE VENTRICULAR COMPLEXES ARE NOW PRESENT Confirmed by MD Rahul, Danny ([id number]) on 04/17/2020 4:13:47 PM Referred By: FAM Sauceda Confirmed By:Danny Kay MD
== END 2020-04-16 17:38 | disposition home or self-care (01) | DRG 393 ==
LOC: FER 08:58 → FM/S 10:53 → UNDOADMOB 10:53 → INTOOBSV 10:53 → FM/S 15:01 → OBSVTOIN 04-15 20:20
PROVIDERS: ADMIT Internal Medicine; ATTEND Nurse Practitioner Family
DX: K64.9 Unspecified hemorrhoids (principal); E43 Unspecified severe protein-calorie malnutrition; R64 Cachexia; Z68.1 Body mass index [BMI] 19.9 or less, adult; K92.2 Gastrointestinal hemorrhage, unspecified; R19.7 Diarrhea, unspecified; F03.90 Unspecified dementia, unspecified severity, without behavioral disturbance, psychotic disturbance, mood disturbance, and anxiety; J44.9 Chronic obstructive pulmonary disease, unspecified; F41.9 Anxiety disorder, unspecified
CPT/HCPCS: 36415; 71045-TC-FY; 80053; 82272; 82550; 84484; 85025; 85027; 86480; 86850; 86900; 86901; 93005; 97116-GP; 97162-GP; 99285-25; G0378; U0003

== ENCOUNTER 2020-09-14 00:23 | Inpatient (IN) | payer OTHER, MEDICARE ==
[2020-09-14 01:05] VITALS: BMI 14.2
[2020-09-14 02:19] LABS: POTASSIUM 3.7 mmol/L (3.5-5.1)
[2020-09-14 02:21] LABS: ALBUMIN 3.4 g/dl (3.4-5.0); CALCIUM 8.3 mg/dL (8.5-10.1)
[2020-09-14 02:22] LABS: BLOOD UREA NITROGEN 21.9 mg/dL (7-18)
[2020-09-14 02:25] LABS: CREATININE 0.6 mg/dL (0.55-1.3)
[2020-09-14 02:26] LABS: BILIRUBIN,TOTAL 0.5 mg/dL (0.2-1); TOT PROT 6.1 g/dl (6.4-8.2)
[2020-09-14] MEDS ORDERED: morphine SULFATE 4 MG/ML VIAL ONE (03:03)
[2020-09-14] MEDS ORDERED: morphine CARPU-JECT 2 MG/1 ML DISP.SYRIN IVPUSH ONE (03:05)
[2020-09-14 08:20] LABS: HEMATOCRIT 38.5 % (32.4-45.2); HEMOGLOBIN 13.1 GM/dL (10.7-15.3); MCH 33.7 pg (25.7-33.7); MEAN CELL VOLUME 98.9 fl (80-96); RDW 13.2 % (11.6-15.6); WHITE BLOOD COUNT 6.4 K/mm3 (4.0-10.0)
[2020-09-14 08:21] LABS: BASO % 1.1 % (0-2.0); EOS % 2.2 % (0-4.5); LYMPH % 10.9 % (8-40); MEAN PLT VOLUME 9.1 fl (7.5-11.1); MONO % 9.1 % (3.8-10.2); NEUT % 76.7 % (42.8-82.8); PLATELET COUNT 142 K/MM3 (134-434)
[2020-09-14 08:27] LABS: HEMATOCRIT 35.7 % (32.4-45.2); HEMOGLOBIN 12.1 GM/dl (10.7-15.3); MCH 33.3 pg (25.7-33.7); MCHC 33.8 g/dl (32.0-36.0); MEAN CELL VOLUME 98.4 fl (80-96); MEAN PLT VOLUME 8.4 fl (7.5-11.1); PLATELET COUNT 136 K/MM3 (134-434); RBC 3.63 M/mm3 (3.60-5.2); RDW 12.3 % (11.6-15.6); WHITE BLOOD COUNT 9.4 K/mm3 (4.0-10.8)
[2020-09-14 08:31] LABS: CALCIUM 8.1 mg/dl (8.5-10); CREATININE 0.5 mg/dl (0.55-1.3); POTASSIUM 3.6 mmol/L (3.5-5.1)
[2020-09-14] MEDS: CYANOCOBALAMIN 1,000 MCG TABLET (FP) PO SCH (10:43)
[2020-09-14] MEDS: ACETAMINOPHEN 325 MG TABLET (FP) PO PRN ×3 (10:44→21:44)
[2020-09-14] MEDS: TIOTROPIUM BROMIDE 2.5 MCG (SPIRIVA) RESPIMAT INHALER IH SCH (10:55)
[2020-09-14] MEDS: ALPRAZolam 0.25 MG TABLET PO SCH ×2 (13:40→21:43)
[2020-09-14] MEDS ORDERED: ACETAMINOPHEN 1000 MG/100 ML VIAL (NON FORMULARY) IVPB PRN ×2 (17:12→17:17)
[2020-09-15] MEDS: ALPRAZolam 0.25 MG TABLET PO SCH ×3 (06:57→21:13)
[2020-09-15 08:07] LABS: ALBUMIN 3.3 g/dl (3.4-5.0); BILIRUBIN,TOTAL 1.3 mg/dl (0.2-1); CALCIUM 8.4 mg/dl (8.5-10); CREATININE 0.4 mg/dl (0.55-1.3); MAGNESIUM 1.8 mg/dL (1.8-2.4); POTASSIUM 3.6 mmol/L (3.5-5.1); TOT PROT 5.5 g/dl (6.4-8.2)
[2020-09-15 08:12] LABS: BASO % 0.4 % (0-2.0); EOS % 1.9 % (0-4.5); HEMATOCRIT 36.3 % (32.4-45.2); HEMOGLOBIN 12.1 GM/dl (10.7-15.3); LYMPH % 6.8 % (8-40); MCH 32.9 pg (25.7-33.7); MCHC 33.3 g/dl (32.0-36.0); MEAN CELL VOLUME 98.8 fl (80-96); MEAN PLT VOLUME 8.6 fl (7.5-11.1); NEUT % 80.9 % (42.8-82.8); PLATELET COUNT 106 K/MM3 (134-434); RBC 3.67 M/mm3 (3.60-5.2); RDW 12.1 % (11.6-15.6); WHITE BLOOD COUNT 7.9 K/mm3 (4.0-10.8)
[2020-09-15] MEDS: CYANOCOBALAMIN 1,000 MCG TABLET (FP) PO SCH (09:24)
[2020-09-15] MEDS ORDERED: SODIUM CHLORIDE 500 ML IV STA (10:20)
[2020-09-15] MEDS: TIOTROPIUM BROMIDE 2.5 MCG (SPIRIVA) RESPIMAT INHALER IH SCH (10:44)
[2020-09-15] MEDS ORDERED: LACTATED RINGERS SOLUTION 1,000 ML IV SCH (12:45)
[2020-09-15] MEDS ORDERED: ONDANSETRON 4 MG/2 ML VIAL IVPUSH PRN (13:04)
[2020-09-15] MEDS ORDERED: MIDAZOLAM HCL 2 MG/2 ML SINGLE DOSE VIAL ONE ×2 (13:07)
[2020-09-15] MEDS ORDERED: KETAMINE HCL 200 MG/20 ML VIAL ONE (13:08)
[2020-09-15] MEDS ORDERED: ACETAMINOPHEN INJECTION 100 ML IVPB ONE (15:03)
[2020-09-15] MEDS: CEFAZOLIN 1 GM/D5W 1 GM/50 ML BAG IVPB SCH (20:40)
[2020-09-16] MEDS: CEFAZOLIN 1 GM/D5W 1 GM/50 ML BAG IVPB SCH (05:24)
[2020-09-16] MEDS: ACETAMINOPHEN 325 MG TABLET (FP) PO PRN ×2 (05:35→18:21)
[2020-09-16] MEDS: ALPRAZolam 0.25 MG TABLET PO SCH ×3 (06:55→21:48)
[2020-09-16 08:28] LABS: BASO % 0.6 % (0-2.0); HEMATOCRIT 32.4 % (32.4-45.2); HEMOGLOBIN 10.8 GM/dl (10.7-15.3); LYMPH % 6.7 % (8-40); MCH 33.2 pg (25.7-33.7); MCHC 33.3 g/dl (32.0-36.0); MEAN CELL VOLUME 99.7 fl (80-96); MEAN PLT VOLUME 8.9 fl (7.5-11.1); MONO % 6.9 % (3.8-10.2); NEUT % 84.8 % (42.8-82.8); PLATELET COUNT 88 K/MM3 (134-434); RBC 3.25 M/mm3 (3.60-5.2); RDW 12.4 % (11.6-15.6); WHITE BLOOD COUNT 8.1 K/mm3 (4.0-10.8)
[2020-09-16 08:35] LABS: ALBUMIN 2.9 g/dl (3.4-5.0); BILIRUBIN,TOTAL 1.1 mg/dl (0.2-1); CREATININE 0.5 mg/dl (0.55-1.3); MAGNESIUM 1.8 mg/dL (1.8-2.4); POTASSIUM 3.8 mmol/L (3.5-5.1); TOT PROT 5.1 g/dl (6.4-8.2)
[2020-09-16] MEDS: ENOXAPARIN NA (PORCINE) 40 MG/0.4 ML DISP.SYRIN SQ SCH ×2 (08:45→09:35)
[2020-09-16] MEDS: CYANOCOBALAMIN 1,000 MCG TABLET (FP) PO SCH (09:43)
[2020-09-16] MEDS: TIOTROPIUM BROMIDE 2.5 MCG (SPIRIVA) RESPIMAT INHALER IH SCH (09:47)
[2020-09-16 11:57] LABS: EPITHELIAL CELLS MODERATE /hpf
[2020-09-16] MEDS ORDERED: MEROPENEM 1 GM in DEXTROSE 5%-WATER 100 ML IVPB SCH (19:00)
[2020-09-16] MEDS ORDERED: cefTRIAXone SODIUM 1 GM VIAL ONE (20:05)
[2020-09-16] MEDS ORDERED: DEXTROSE 5%-WATER - 50 ML IVPB ONE (20:05)
[2020-09-16] MEDS: CEFTRIAXONE 1 GM in DEXTROSE 5%-WATER - 50 ML IVPB SCH (20:20)
[2020-09-17] MEDS: ALPRAZolam 0.25 MG TABLET PO SCH ×3 (05:50→21:35)
[2020-09-17 07:59] LABS: EOS % 4.4 % (0-4.5); HEMATOCRIT 31.5 % (32.4-45.2); HEMOGLOBIN 10.4 GM/dl (10.7-15.3); LYMPH % 9.4 % (8-40); MCH 32.9 pg (25.7-33.7); MCHC 33.1 g/dl (32.0-36.0); MEAN CELL VOLUME 99.2 fl (80-96); MEAN PLT VOLUME 8.7 fl (7.5-11.1); MONO % 8.7 % (3.8-10.2); NEUT % 76.5 % (42.8-82.8); PLATELET COUNT 90 K/MM3 (134-434); RBC 3.17 M/mm3 (3.60-5.2); RDW 12.4 % (11.6-15.6)
[2020-09-17 08:03] LABS: ALBUMIN 2.9 g/dl (3.4-5.0); BILIRUBIN,TOTAL 1.1 mg/dl (0.2-1); CALCIUM 7.9 mg/dl (8.5-10); CREATININE 0.4 mg/dl (0.55-1.3); MAGNESIUM 1.8 mg/dL (1.8-2.4); POTASSIUM 3.7 mmol/L (3.5-5.1); TOT PROT 5.2 g/dl (6.4-8.2)
[2020-09-17] MEDS ORDERED: cefTRIAXone SODIUM 1 GM VIAL ONE (09:18)
[2020-09-17] MEDS ORDERED: DEXTROSE 5%-WATER - 50 ML IVPB ONE (09:19)
[2020-09-17] MEDS: ENOXAPARIN NA (PORCINE) 40 MG/0.4 ML DISP.SYRIN SQ SCH (09:24)
[2020-09-17] MEDS: CEFTRIAXONE 1 GM in DEXTROSE 5%-WATER - 50 ML IVPB SCH (09:25)
[2020-09-17] MEDS: TIOTROPIUM BROMIDE 2.5 MCG (SPIRIVA) RESPIMAT INHALER IH SCH (09:25)
[2020-09-17] MEDS: CYANOCOBALAMIN 1,000 MCG TABLET (FP) PO SCH (09:25)
[2020-09-17] MEDS ORDERED: ASPIRIN 81 MG CHEWABLE TABLETS PO ONE (11:41)
[2020-09-17] MEDS ORDERED: ATORVASTATIN CA 40 MG TABLET (FP) PO ONE (11:41)
[2020-09-17] MEDS: ACETAMINOPHEN 325 MG TABLET (FP) PO PRN (21:39)
[2020-09-17] MEDS: ATORVASTATIN CA 20 MG TABLET (FP) PO SCH (21:39)
[2020-09-18] MEDS: ALPRAZolam 0.25 MG TABLET PO SCH ×3 (06:14→21:25)
[2020-09-18 09:16] LABS: BASO % 1.3 % (0-2.0); EOS % 4.5 % (0-4.5); HEMATOCRIT 28.3 % (32.4-45.2); HEMOGLOBIN 9.4 GM/dl (10.7-15.3); LYMPH % 8.8 % (8-40); MCH 33.1 pg (25.7-33.7); MCHC 33.4 g/dl (32.0-36.0); MEAN CELL VOLUME 99.2 fl (80-96); MEAN PLT VOLUME 8.4 fl (7.5-11.1); MONO % 10.5 % (3.8-10.2); NEUT % 74.9 % (42.8-82.8); PLATELET COUNT 96 K/MM3 (134-434); RBC 2.85 M/mm3 (3.60-5.2); RDW 12.1 % (11.6-15.6); WHITE BLOOD COUNT 5.8 K/mm3 (4.0-10.8)
[2020-09-18 09:34] LABS: ALBUMIN 2.5 g/dl (3.4-5.0); BILIRUBIN,TOTAL 0.8 mg/dl (0.2-1); CALCIUM 7.6 mg/dl (8.5-10); CREATININE 0.4 mg/dl (0.55-1.3); MAGNESIUM 1.8 mg/dL (1.8-2.4); POTASSIUM 3.7 mmol/L (3.5-5.1); TOT PROT 4.7 g/dl (6.4-8.2)
[2020-09-18] MEDS ORDERED: cefTRIAXone SODIUM 1 GM VIAL ONE (10:12)
[2020-09-18] MEDS ORDERED: DEXTROSE 5%-WATER - 50 ML IVPB ONE (10:12)
[2020-09-18] MEDS: ENOXAPARIN NA (PORCINE) 40 MG/0.4 ML DISP.SYRIN SQ SCH (10:15)
[2020-09-18] MEDS: CEFTRIAXONE 1 GM in DEXTROSE 5%-WATER - 50 ML IVPB SCH (10:15)
[2020-09-18] MEDS: CYANOCOBALAMIN 1,000 MCG TABLET (FP) PO SCH (10:15)
[2020-09-18] MEDS: ASPIRIN COATED 81 MG TABLET.EC PO SCH (10:15)
[2020-09-18] MEDS: TIOTROPIUM BROMIDE 2.5 MCG (SPIRIVA) RESPIMAT INHALER IH SCH (10:16)
[2020-09-18] MEDS: CALCIUM 500MG/VIT-D 200 UNITS COMBO TABLET (FP) PO SCH ×3 (12:00→21:30)
[2020-09-18] MEDS: ATORVASTATIN CA 20 MG TABLET (FP) PO SCH ×2 (21:25→21:31)
[2020-09-18] MEDS: ACETAMINOPHEN 325 MG TABLET (FP) PO PRN (21:25)
[2020-09-19] MEDS: ALPRAZolam 0.25 MG TABLET PO SCH (06:55)
[2020-09-19 08:14] LABS: BASO % 0.8 % (0-2.0); EOS % 4.9 % (0-4.5); HEMATOCRIT 26.9 % (32.4-45.2); LYMPH % 13.2 % (8-40); MCH 33.3 pg (25.7-33.7); MCHC 33.4 g/dl (32.0-36.0); MEAN CELL VOLUME 99.6 fl (80-96); MONO % 12.1 % (3.8-10.2); PLATELET COUNT 105 K/MM3 (134-434); RDW 12.1 % (11.6-15.6); WHITE BLOOD COUNT 5.3 K/mm3 (4.0-10.8)
[2020-09-19 08:22] LABS: ALBUMIN 2.5 g/dl (3.4-5.0); BILIRUBIN,TOTAL 0.8 mg/dl (0.2-1); CALCIUM 8.1 mg/dl (8.5-10); CREATININE 0.4 mg/dl (0.55-1.3); MAGNESIUM 1.9 mg/dL (1.8-2.4); POTASSIUM 4.4 mmol/L (3.5-5.1); TOT PROT 4.7 g/dl (6.4-8.2)
[2020-09-19] MEDS ORDERED: cefTRIAXone SODIUM 1 GM VIAL ONE (09:36)
[2020-09-19] MEDS ORDERED: DEXTROSE 5%-WATER - 50 ML IVPB ONE (09:36)
[2020-09-19] MEDS: CALCIUM 500MG/VIT-D 200 UNITS COMBO TABLET (FP) PO SCH ×2 (09:41→21:01)
[2020-09-19] MEDS: ENOXAPARIN NA (PORCINE) 40 MG/0.4 ML DISP.SYRIN SQ SCH (09:41)
[2020-09-19] MEDS: CYANOCOBALAMIN 1,000 MCG TABLET (FP) PO SCH (09:41)
[2020-09-19] MEDS: ASPIRIN COATED 81 MG TABLET.EC PO SCH (09:41)
[2020-09-19] MEDS: CEFTRIAXONE 1 GM in DEXTROSE 5%-WATER - 50 ML IVPB SCH (09:41)
[2020-09-19] MEDS: TIOTROPIUM BROMIDE 2.5 MCG (SPIRIVA) RESPIMAT INHALER IH SCH (11:00)
[2020-09-19] MEDS ORDERED: ALPRAZolam 0.25 MG TABLET PO PRN (12:36)
[2020-09-19] MEDS: ATORVASTATIN CA 20 MG TABLET (FP) PO SCH (21:00)
[2020-09-20] MEDS: CALCIUM 500MG/VIT-D 200 UNITS COMBO TABLET (FP) PO SCH (09:35)
[2020-09-20] MEDS: ENOXAPARIN NA (PORCINE) 40 MG/0.4 ML DISP.SYRIN SQ SCH (09:35)
[2020-09-20] MEDS: CYANOCOBALAMIN 1,000 MCG TABLET (FP) PO SCH (09:35)
[2020-09-20] MEDS: ASPIRIN COATED 81 MG TABLET.EC PO SCH (09:36)
[2020-09-20] MEDS: TIOTROPIUM BROMIDE 2.5 MCG (SPIRIVA) RESPIMAT INHALER IH SCH (10:00)
[2020-09-20] MEDS: CEFTRIAXONE 1 GM in DEXTROSE 5%-WATER - 50 ML IVPB SCH (12:06)
[2020-09-20 14:14] VITALS: BP 94/48; PULSE 71; TEMP 97.7
== END 2020-09-20 17:51 | DRG 480 ==
LOC: FER 00:23 → FM/S 02:37 → UNDOADMIN 03:24
PROVIDERS: ADMIT Hospitalist; ATTEND Nurse Practitioner Acute Care
PROC: 0QS704Z Reposition Left Upper Femur with Internal Fixation Device, Open Approach (ICD-10-PCS; principal; 2020-09-15 13:51)
DX: S72.145A Nondisplaced intertrochanteric fracture of left femur, initial encounter for closed fracture (principal); J18.9 Pneumonia, unspecified organism; E43 Unspecified severe protein-calorie malnutrition; J98.11 Atelectasis; J95.89 Other postprocedural complications and disorders of respiratory system, not elsewhere classified; J96.11 Chronic respiratory failure with hypoxia; Z68.1 Body mass index [BMI] 19.9 or less, adult; M48.56XA Collapsed vertebra, not elsewhere classified, lumbar region, initial encounter for fracture; M48.54XA Collapsed vertebra, not elsewhere classified, thoracic region, initial encounter for fracture; I24.8 Other forms of acute ischemic heart disease; R64 Cachexia; J44.9 Chronic obstructive pulmonary disease, unspecified; F03.90 Unspecified dementia, unspecified severity, without behavioral disturbance, psychotic disturbance, mood disturbance, and anxiety; F41.9 Anxiety disorder, unspecified; K64.9 Unspecified hemorrhoids; W01.0XXA Fall on same level from slipping, tripping and stumbling without subsequent striking against object, initial encounter; Y92.89 Other specified places as the place of occurrence of the external cause; Y83.8 Other surgical procedures as the cause of abnormal reaction of the patient, or of later complication, without mention of misadventure at the time of the procedure; Z88.0 Allergy status to penicillin; Z99.81 Dependence on supplemental oxygen
CPT/HCPCS: 36415; 70450-TC; 71045-TC-FY; 71275-TC; 73502-TC-LT-FY; 73523-TC-FY; 80048; 80053; 81003; 81015; 82962; 83605; 83735; 84484; 85025; 85027; 85379; 86769; 87040; 87070; 87086; 87205; 87804; 87899; 93005; 93306-TC; 94760; 97116-GP; 97162-GP; 99285-25; C9803; J0131; Q9967; U0003